=== PATIENT | female | born 1965 | race Caucasian/White ===

== ENCOUNTER → 2020-07-22 11:14 | Outpatient (CLI) | payer BC, SELFPAY ==
--- NOTE | ~2020-07-22 | DEXA_ITS ---
Bone Density Report Name: Kika Ag Age: 54 Sex: Female Ethnicity: White Date of : 1965 Indication: postmenopausal; screening for osteoporosis; Referring Provider: JASMIN, KEDAR Study: Bone densitometry was performed. Exam Date: July 22, 2020 Accession number: [id number] Bone Density: Region BMD T-score Z-score Classification AP Spine (L1-L4) 0.852 -1.8 -0.9 Osteopenia Femoral Neck (Left) 0.659 -1.7 -0.8 Osteopenia Total Hip (Left) 0.829 -0.9 -0.3 Normal Femoral Neck (Right) 0.623 -2.0 -1.1 Osteopenia Total Hip (Right) 0.826 -1.0 -0.4 Normal Total Hip Mean 0.828 -1.0 -0.4 Normal World Health Organization criteria for BMD impression classify patients as: Normal (T-score at or above -1.0), Osteopenia (T-score between -1.0 and -2.5), or Osteoporosis (T-score at or below -2.5). 10-year Fracture Risk(1): Major Osteoporotic Fracture 6.4% Hip Fracture 0.8% Reported Risk Factors: [place] (), Neck BMD=0.623, BMI=22.3 (1) FRAX(R) Version 3.08. Fracture probability calculated for an untreated patient. Fracture probability may be lower if the patient has received treatment. Previous Exams: Region Exam Age BMD T-score BMD Change BMD Change Date g/cm2 vs Baseline vs Previous AP Spine(L1-L4) 07/22/2020 54 0.852 -1.8 -0.092* -0.092* 10/02/2014 49 0.943 -0.9 Total Hip(Left) 07/22/2020 54 0.829 -0.9 -0.082* -0.082* 10/02/2014 49 0.911 -0.3 Total Hip(Right) 07/22/2020 54 0.826 -1.0 -0.071* -0.071* 10/02/2014 49 0.896 -0.4 *Denotes significance at 95% confidence level, LSC for AP Spine = 0.022 g/cm2, LSC for Total Hip = 0.027 g/cm2 Clinical Information Provided by Patient: Has used the following medications: Vitamin D, Calcium, MTV Patient maximum height was 62 Menopause Age: 48 Does not regularly consume dairy products Drinks caffeinated beverages Onset of menses at age 15 Number of children 1 Impression: The patient has low bone mass, based on the Right Femoral Neck T-score. The patient has an estimated ten-year risk of hip fracture of 0.8% and an estimated ten-year risk of major fracture of 6.4%, based on the WHO FRAX algorithm. The BMD for the AP Spine(L1-L4) decreased, changing by -0.092 since the last DXA exam. The BMD for the Total Hip(Left) decreased, changing by -0.082 since the last DXA exam. The BMD for the Total Hip(Right) decreased, changing by
== END ==
PROVIDERS: Visit Provider Nurse Practitioner
DX: Z78.0 Asymptomatic menopausal state (principal)
CPT/HCPCS: 77080

== ENCOUNTER → 2020-08-31 13:36 | Outpatient (CLI) | payer BC, SELFPAY ==
--- NOTE | ~2020-08-31 | MM_ITS ---
EXAMINATION: MM screening [facility] w [facility] HISTORY: Screening mammogram TECHNIQUE: Craniocaudal and mediolateral oblique 3-D tomosynthesis images were obtained and synthetic 2-D images were generated. CAD analysis was submitted and interpreted. COMPARISON: 12/26/2017 bilateral digital screening mammogram BREAST PARENCHYMAL COMPOSITION: There are scattered areas of fibroglandular density. FINDINGS: There is no evidence of suspicious mass, calcification, or architectural distortion to sugg est malignancy in either breast. There has been no suspicious interval change. IMPRESSION: 1. No mammographic evidence of malignancy. 2. Recommend routine screening mammography in one year. BI-RADS Category 1: Negative Reviewed, dictated and finalized at location A.
== END ==
PROVIDERS: Visit Provider Nurse Practitioner
DX: Z12.31 Encounter for screening mammogram for malignant neoplasm of breast (principal)
CPT/HCPCS: 77063; 77067

== ENCOUNTER 2021-01-14 00:19 | Day surgery (SDC) | payer BC, SELFPAY ==
[2020-12-22 09:44] VITALS: BMI 22.8
[2021-01-14 09:21] VITALS: BP 140/79; PULSE 77; RESP 18; TEMP 36.3; O2SAT 100; BMI 22.5
[2021-01-14] MEDS: LACTATED RINGERS 1,000 ML 150 ML IV CONT (09:36)
--- NOTE | 2021-01-14 09:45 | WPDANESEPPF ---
Anes - Initial Pre Proc Eval Procedure: Operation Date: 01/14/21 10:00 Proposed Procedures p Colonoscopy - Angel Handy MD Date/Time: 01/14/21 09:45 Surgeon: Angel Handy MD Pre Op Diagnosis: diverticulitis Patient Data Age: 55 Gender: F Height: 1.57 m Weight: 55.8 kg Last Vital Signs Temp 97.4 F L 01/14/21 09:21 Pulse 77 01/14/21 09:21 Resp 18 01/14/21 09:21 BP 140/79 01/14/21 09:21 Pulse Ox 100 01/14/21 09:21 Allergies Allergy/AdvReac Type Severity Reaction Status Date / Time Penicillins Allergy Unknown ? Verified 01/14/21 09:19 Home Medications Medication Instructions Recorded Confirmed Type ergocalciferol (vitamin D2) 1,250 mcg PO WEEKLY 12/22/20 01/14/21 History Patient hx anesthesia problems: none Family hx anesthesia problems: none Results Review: All pre-operative results and documents have been reviewed as part of the pre-operative evaluation. [facility] Past Medical History Medical History (Updated 01/14/21 @ 09:39 by Mack Jewell MD) Healthy adult Social History Social History Smoking status: Never smoker Alcohol intake: current Alcohol use details: occasionally Substance use: never Substance use type: does not use Living arrangements: with family Spiritual care concerns: No Anes - Eval Final PreProcedure Day of Procedure 01/14/21 09:45 Patient weight: normal Heart: regular rate and rhythm Lungs: clear to auscultation Airway: Mallampati scale class II Neurological: alert and oriented Last oral intake: >/= 8 hours ASA classification: I Emergent: no Anesthetic plan: proceed Anesthesia type and monitoring: general GIVS and standard monitoring Results Review: All pre-operative results and documents have been reviewed as part of the pre-operative evaluation. Informed Consent: The patient's anesthetic plan and its attendant risks and benefits were discussed with the patient/family/POA. Questions were solicited and answers provided to the satisfaction of the patient/family/POA.
--- NOTE | 2021-01-14 10:06 | WPDGICN ---
Assessment and Plan Assessment and plan (1) Diverticulitis: Code(s): K57.92 - Diverticulitis of intestine, part unspecified, without perforation or abscess without bleeding Status: Acute Assessment and Plan: Patient with episode of diverticulitis confirmed by CT scan September of 2020. Plan is for high-fiber diet colonoscopy will be performed to exclude any other organic disease and ensure that this is resolving. Further recommendations will be given after endoscopy. (2) Dyspepsia: Code(s): R10.13 - Epigastric pain Status: Acute Assessment and Plan: Patient has had vague abdominal pain over the last year alleviated with Mylanta. Plan is for patient to try Pepcid or Prilosec trial and follow up my office if this fails to alleviate her symptoms. GI Consult Note Consult date/time: 01/14/21 10:06 HPI: Kika Ag is a 55 year old female Presents for colonoscopy. Patient has recent episode of diverticulitis confirmed by CT scan. She has been treated with antibiotic therapy and feels much improved. Diverticulitis episode occurred in September of 2020. Patient reports that her current weight appetite bowel movements are normal. She denies any significant abdominal pain. She has had vague abdominal discomfort over the last year alleviated with Mylanta. She has had no evidence for bleeding. No fevers. Review of Systems Review of Systems: All systems reviewed & are unremarkable except as noted in HPI and below PMFSH Past Medical History Medical History (Updated 01/14/21 @ 10:07 by Angel Handy MD) Healthy adult Social History Social History Smoking status: Never smoker Alcohol intake: current Alcohol use details: occasionally Substance use: never Substance use type: does not use Living arrangements: with family Spiritual care concerns: No Meds Home Medications and Allergies Home Medications Medication Instructions Recorded Confirmed Type ergocalciferol (vitamin D2) 1,250 mcg PO WEEKLY 12/22/20 01/14/21 History Allergies Allergy/AdvReac Type Severity Reaction Status Date / Time Penicillins Allergy Unknown ? Verified 01/14/21 09:19 Vital Signs Vital Signs - 24 hr 01/14/21 09:21 Temperature 97.4 F L Pulse Rate 77 Respiratory Rate 18 Blood Pressure 140/79 Pulse Oximetry 100 Exam Narrative: Physical exam reveals patient to be alert. Vital signs are stable. HEENT exam is unremarkable. Patient is anicteric. Lungs are clear to auscultation and percussion. Heart is without murmur or extra sounds. Abdominal exam bowel sounds are present soft nontender with no organomegaly. Digital external rectal exam is normal.
[2021-01-14 10:24] VITALS: BP 92/55; PULSE 86; RESP 27; O2SAT 99
[2021-01-14 10:34] VITALS: BP 94/57; PULSE 82; RESP 19; O2SAT 99
[2021-01-14 10:44] VITALS: BP 114/84; PULSE 88; RESP 18; O2SAT 99
== END 2021-01-14 10:58 | disposition home or self-care (01) ==
PROVIDERS: PCP Physician Assistant; Visit Provider Internal Medicine Gastroenterology
PROC: 0DJD8ZZ Inspection of Lower Intestinal Tract, Via Natural or Artificial Opening Endoscopic (ICD-10-PCS; CPT 45378; principal; 2021-01-14 10:00)
DX: K57.30 Diverticulosis of large intestine without perforation or abscess without bleeding (principal); R10.13 Epigastric pain; K64.8 Other hemorrhoids
CPT/HCPCS: 45378; J2704; J7120

== ENCOUNTER → 2021-10-12 14:06 | Outpatient (CLI) | payer BC, SELFPAY ==
--- NOTE | ~2021-10-12 | MM_ITS ---
EXAMINATION: MM screening [facility] BI w izaiah HISTORY: Screening TECHNIQUE: Craniocaudal and mediolateral oblique 3-D tomosynthesis images were obtained and synthetic 2-D images were generated. CAD analysis was submitted and interpreted. COMPARISON: Comparison to multiple prior studies sequentially, with oldest reviewed study dated 10/02. BREAST PARENCHYMAL COMPOSITION: There are scattered areas of fibroglandular density. FINDINGS: There is no evidence of suspicious mass, calcification, or architectural distortion to sugg est malignancy in either breast. There has been no suspicious interval change. IMPRESSION: 1. No mammographic evidence of malignancy. 2. Recommend routine screening mammography in one year. BI-RADS Category 1: Negative Reviewed, dictated and finalized at location A.
== END ==
PROVIDERS: PCP Internal Medicine; Visit Provider Nurse Practitioner
DX: Z12.31 Encounter for screening mammogram for malignant neoplasm of breast (principal)
CPT/HCPCS: 77063; 77067

== ENCOUNTER → 2023-02-21 10:30 | Outpatient (CLI) | payer BC, SELFPAY ==
--- NOTE | ~2023-02-21 | DEXA_ITS ---
Bone Density Report Name: AMELIA MORALES Age: 57 Sex: Female Ethnicity: White Date of : 1965 Indication: osteopenia; parental hip fracture; postmenopausal Referring Provider: SHERMAN MILNER Study: Bone densitometry was performed. Exam Date: February 21, 2023 Accession number: [id number] Bone Density: Region BMD T-score Z-score Classification AP Spine (L1-L4) 0.804 -2.2 -1.1 Osteopenia Femoral Neck (Left) 0.677 -1.5 -0.5 Osteopenia Total Hip (Left) 0.860 -0.7 0.0 Normal Femoral Neck (Right) 0.626 -2.0 -0.9 Osteopenia Total Hip (Right) 0.817 -1.0 -0.3 Normal Total Hip Mean 0.839 -0.9 -0.2 Normal World Health Organization criteria for BMD impression classify patients as: Normal (T-score at or above -1.0), Osteopenia (T-score between -1.0 and -2.5), or Osteoporosis (T-score at or below -2.5). 10-year Fracture Risk(1): Major Osteoporotic Fracture 15% Hip Fracture 0.9% Reported Risk Factors: [place] (), Neck BMD=0.626, BMI=29.6, parental fracture (1) FRAX(R) Version 3.08. Fracture probability calculated for an untreated patient. Fracture probability may be lower if the patient has received treatment. Previous Exams: Region Exam Age BMD T-score BMD Change BMD Change Date g/cm2 vs Baseline vs Previous AP Spine(L1-L4) 02/21/2023 57 0.804 -2.2 -0.139* -0.047* 07/22/2020 54 0.852 -1.8 -0.092* -0.092* 10/02/2014 49 0.943 -0.9 Total Hip(Left) 02/21/2023 57 0.860 -0.7 -0.051* 0.031* 07/22/2020 54 0.829 -0.9 -0.082* -0.082* 10/02/2014 49 0.911 -0.3 Total Hip(Right) 02/21/2023 57 0.817 -1.0 -0.079* -0.008 07/22/2020 54 0.826 -1.0 -0.071* -0.071* 10/02/2014 49 0.896 -0.4 *Denotes significance at 95% confidence level, LSC for AP Spine = 0.022 g/cm2, LSC for Total Hip = 0.027 g/cm2 Clinical Information Provided by Patient: Parent has had a hip fracture Has used the following medications: Vitamin D Patient maximum height was 62.2 Menopause Age: 48 Drinks caffeinated beverages Onset of menses at age 15 Number of children 1 Impression: The patient has low bone mass, based on the Total Spine T-score. The patient has an estimated ten-year risk of hip fracture of 0.9% and an estimated ten-year risk of major fracture of 15%, based on the WHO FRAX algorithm. The patient has risk factors, including: par
--- NOTE | ~2023-02-21 | MM_ITS ---
EXAMINATION: MM screening [facility] BI w izaiah HISTORY: Screening mammogram TECHNIQUE: Craniocaudal and mediolateral oblique 3-D tomosynthesis images were obtained and synthetic 2-D images were generated. CAD analysis was submitted and interpreted. COMPARISON: 10/12/2021, 08/31/2020, 12/26/2017 BREAST PARENCHYMAL COMPOSITION: There are scattered areas of fibroglandular density. FINDINGS: No suspicious mass, calcification, or architectural distortion are identified in either tere ast to suggest malignancy. There has been no suspicious interval change. IMPRESSION: 1. No mammographic evidence of malignancy. 2. Recommend routine screening mammography in one year. BI-RADS Category 1: Negative Reviewed, dictated and finalized at location A. 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
== END ==
PROVIDERS: PCP Obstetrics & Gynecology Gynecology; Visit Provider Obstetrics & Gynecology Gynecology
DX: Z12.31 Encounter for screening mammogram for malignant neoplasm of breast (principal); M85.80 Other specified disorders of bone density and structure, unspecified site; Z78.0 Asymptomatic menopausal state
CPT/HCPCS: 77063; 77067; 77080

== ENCOUNTER 2024-04-30 12:07 | Outpatient (CLI) | payer BC, SELFPAY ==
--- NOTE | ~2024-04-30 | MM_ITS ---
EXAMINATION: MM screening [facility] w [facility] HISTORY: Screening TECHNIQUE: Craniocaudal and mediolateral oblique 3-D tomosynthesis images were obtained and synthetic 2-D images were generated. CAD analysis was submitted and interpreted. COMPARISON: Comparison to multiple prior studies sequentially, with oldest reviewed study dated 10/2015. BREAST PARENCHYMAL COMPOSITION: Not dense: There are scattered areas of fibroglandular density. FINDINGS: There is no evidence of suspicious mass, calcification, or architectural distortion to sugg est malignancy in either breast. There has been no suspicious interval change. IMPRESSION: 1. No mammographic evidence of malignancy. 2. Recommend routine screening mammography in one year. BI-RADS Category 1: Negative Reviewed, dictated and finalized at location A. 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
== END 2024-04-30 12:08 | disposition home or self-care (01) ==
PROVIDERS: PCP Obstetrics & Gynecology Gynecology; Visit Provider Nurse Practitioner
DX: Z12.31 Encounter for screening mammogram for malignant neoplasm of breast (principal)
CPT/HCPCS: 77063; 77067